=== PATIENT | male | born 1995 | race Caucasian/White ===

== ENCOUNTER 2018-12-18 04:01 | Emergency (ER) | payer MEDICAID ==
[~2018-12-18] VITALS: Ht 175.3 cm; Wt 72.7 kg
[2018-12-18 04:03] VITALS: BP 147/106
[2018-12-18] MEDS ORDERED: PENI500T2 PO (04:29)
[2018-12-18] MEDS ORDERED: ACET-3068 PO (04:29)
== END 2018-12-18 04:40 | disposition home or self-care (01) ==
LOC: ER 04:02
DX: K08.89 Other specified disorders of teeth and supporting structures (principal); F17.200 Nicotine dependence, unspecified, uncomplicated; F12.90 Cannabis use, unspecified, uncomplicated; Z79.899 Other long term (current) drug therapy
CPT/HCPCS: 99283